=== PATIENT | male | born 1995 | race Caucasian/White ===

== ENCOUNTER 2018-02-14 15:09 | Inpatient (IN) | payer OTHER ==
[~2018-02-14] VITALS: Ht 160 cm; Wt 71.7 kg
[2018-02-14] MEDS ORDERED: MAGNESIUM HYDROXIDE 30 ML LIQUID UDC PO PRN (16:45)
[2018-02-14] MEDS ORDERED: LOPERAMIDE HCL 2 MG CAPSULE PO PRN ×2 (16:45)
[2018-02-14] MEDS ORDERED: THIAMINE HCL 200 MG/2 ML VIAL IM ONE (16:45)
[2018-02-14] MEDS ORDERED: BUPRENORPHINE HCL 2 MG TAB.SUBL SL PRN (16:45)
[2018-02-14] MEDS ORDERED: IBUPROFEN 600 MG TABLET PO PRN (16:45)
[2018-02-14] MEDS ORDERED: MAG HYDROX/AL HYDROX/SIMETH 30 ML LIQUID UDC PO PRN (16:45)
[2018-02-14] MEDS ORDERED: DICYCLOMINE HCL 20 MG TABLET PO PRN (16:45)
[2018-02-14] MEDS ORDERED: LORAZEPAM 2 MG/1 ML VIAL IM PRN (16:45)
[2018-02-14] MEDS ORDERED: MIRALAX 17 GM POWD.PACK PO PRN (16:45)
[2018-02-14] MEDS ORDERED: METHOCARBAMOL 750 MG TABLET PO PRN (16:45)
[2018-02-14] MEDS ORDERED: ONDANSETRON 4 MG/2 ML VIAL IM PRN (16:45)
[2018-02-14] MEDS ORDERED: ONDANSETRON ODT 4 MG TAB.RAPDIS SL PRN (16:45)
[2018-02-14] MEDS ORDERED: CLONIDINE HCL 0.1 MG TABLET PO PRN (16:45)
[2018-02-14] MEDS ORDERED: ACETAMINOPHEN 325 MG TABLET PO PRN (16:45)
[2018-02-14] MEDS ORDERED: LORAZEPAM 1 MG TABLET PO PRN ×2 (16:45)
--- NOTE | 2018-02-14 17:00 | NUR ---
Intake Assessment; Patient is AOX4, a 22 year old male presented to [facility] to detoxify from Heroin and ETOH. Patient appears disheveled, anxious, agitated, tremors to touch, muscle aches complaining of nausea and vomiting. Patient's admitting vital signs are as follows; BP 127/78, HR 98, Respirations 18, Spo2 98%, Temperature 98.0, weight of 158 lbs and height of 5'3. Patient denies history of seizures and no known allergies reported. Educated patient regarding unit protocols and policies, patient verbalized understanding. Will continue with further assessment when patient is up on the unit. Patient was seen and evaluated by MD at intake office.
[2018-02-14] MEDS: BUPRENORPHINE HCL 2 MG TAB.SUBL SL SCH ×2 (18:00→21:51)
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
--- NOTE | 2018-02-14 18:22 | NUR ---
Medication refusal; Patient's COWS score upon admission is 13 and CIWA of 9. Offered patient scheduled Subutex and PRN Zofran to prevent further N/V. Patient refused to take any medications at this time including Thiamine IM, Subutex, or PRN medications. Patient stated " I just want to sleep right now, i will take the medications tonight instead, please i just want to rest at the moment, i will feel better if I rest it out". Educated patient regarding the importance of compliance to medication regime and also the importance of providing urine for urine drug screen. Patient verbalized understanding. Increased fluid intake encouraged. Will closely monitor patient. Charge nurse notified.
--- NOTE | 2018-02-14 18:52 | NUR ---
End of shift note; Patient is a newly admitted client for Opiate/ ETOH withdrawals. Patient is currently asleep, respirations even and unlabored, easily awaken. Instructed patient to notify staff when he is ready to provide urine for UDS, verbalized understanding. All safety measures secured. Met all needs. Endorsed to night nurse.
--- NOTE | 2018-02-14 19:30 | NUR ---
START OF SHIFT NOTE : Pt. is a 22 year old male admitted to [facility] for Heroin and ETOH medically supervised withdrawal. Skip Load Driver encounters pt resting in room with eyes closed. Patient has a flat affect with poor eye contact & poor concentration. Patient is anxious, restless time to time, visible tremor when alert. Patient denies history of seizures and no known allergies reported. No PRN medications received during a day shift. Last CIWA=9, last COWS=13 at 16:00. Encourage pt to increase activity and to attend groups. Safety measures in place : bed on lowest position with side rails x2 up for safety, all light within reach. Will continue to monitor closely and offer help.
[2018-02-14 20:00] VITALS: BP 137/85
--- NOTE | 2018-02-14 21:00 | NUR ---
PRN BENADRYL Pt. complains of difficulty falling asleep, insomnia. PRN BENADRYL given as ordered. Safety measures in place : bed on lowest position with side rails x2 up for safety, call light within reach. Will continue to monitor closely and offer help.
[2018-02-14 21:06] LABS: *BLOOD, URINE NEGATIVE (NEGATIVE); *CLARITY,URINE CLEAR (CLEAR); *COLOR,URINE YELLOW (YELLOW); *KETONES,URINE 1+ (NEGATIVE); *PROTEIN,URINE NEGATIVE (NEGATIVE); LEUKOCYTE ESTERASE ,URINE TRACE (NEGATIVE); NITRITE, URINE NEGATIVE (NEGATIVE); UGLUCOSE NEGATIVE (NEGATIVE)
[2018-02-14 21:22] LABS: *AMPHETAMINE, URINE POSITIVE (NEGATIVE); *BARBITURATE, URINE NEGATIVE (NEGATIVE); *CANNABINOID, URINE POSITIVE (NEGATIVE); *COCCAINE, URINE NEGATIVE (NEGATIVE); *OPIATE, URINE POSITIVE (NEGATIVE); *PHENCYCLIDINE SCREEN,URINE NEGATIVE (NEGATIVE)
[2018-02-14] MEDS: GABAPENTIN 300 MG CAPSULE PO SCH (21:51)
[2018-02-14] MEDS: diphenhydrAMINE 50 MG CAPSULE PO PRN (21:52)
[2018-02-14 21:59] LABS: *BILIRUBIN,URIN 1+ (NEGATIVE)
[2018-02-14 22:00] LABS: MUCUS,URINE FEW /LPF (0-FEW); SQUAMOUS EPITHELIAL CELL,UR FEW /HPF (NONE SEEN)
[2018-02-14] MEDS ORDERED: LORAZEPAM 1 MG TABLET PO SCH (22:00)
--- NOTE | 2018-02-14 22:00 | NUR ---
RE-ASSESSMENT GIA Pt. is sleeping, RR=16, unlabored and even . Safety measures in place : bed on lowest position with side rails x2 up for safety, call light within reach. Will continue to monitor closely and offer help.
[2018-02-15 05:00] VITALS: BP 100/60
--- NOTE | 2018-02-15 05:00 | NUR ---
Pt. refused blood draw. Educated patient regarding the importance of compliance to treatment and medication regime.
--- NOTE | 2018-02-15 06:37 | NUR ---
END OF SHIFT NOTE : Pt. is a 22 year old male admitted to [facility] for Heroin and ETOH medically supervised withdrawal. PRN given during shift leader : BENADRYL. CIWA, COWS taken when pt. was awake, last CIWA=10, COWS=10 at 04:00 . Pt. refused blood draw. Educated patient regarding the importance of compliance to treatment and medication regime, patient verbalized understanding. Intake= 1,296ml, voided x1, slept=7 hours. Safety measures in place : bed on lowest position with side rails x2 up for safety, all light within reach. Will continue to monitor closely and offer help.
--- NOTE | 2018-02-15 07:51 | NUR ---
Start of shift note; Received report from night nurse. Patient is a 22 year old male admitted on 02/14/18 for Opiate/ETOH withdrawals. Patient appears disheveled, withdrawn, complaining of stomach cramps, diaphoresis, anxiety, irritability, avoidant to eye contact. Educated patient regarding the importance of compliance to treatment and medication regime. Re-informed patient regarding the importance of compliance to blood draw, patient verbalized understanding. All safety measures secured. Will continue to monitor patient.
[2018-02-15 08:00] VITALS: BP 99/62
--- NOTE | 2018-02-15 08:30 | NUR ---
Behavioral note; Patient has been non-compliant with blood draw. Educated patient regarding the importance of blood draw, re-informed patient regarding the importance of compliance to treatment plan. Patient finally agreed to do blood draw but became very anxious, patient stated " What the fuck i just want to sleep, you guys kept bothering me. Do not bother me, i don't want to be bothered after this". Blood drawn successfully by relaster. Safety measures secured.
[2018-02-15 08:33] LABS: BASOPHILS % (AUTO) 0.5 % (0.0-2.0); EOSINOPHILS # (AUTO) 0.5 K/uL (0.0-0.7); EOSINOPHILS % (AUTO) 11.9 % (0.0-7.0); HEMATOCRIT 39.3 % (36.7-47.1); HEMOGLOBIN 13.5 g/dL (12.5-16.3); LYMPHOCYTES % (AUTO) 44.7 % (20.5-51.5); MEAN CORPUSCULAR HEMOGLOBIN 28.1 uug (23.8-33.4); MEAN CORPUSCULAR HGB CONC 34 g/dL (32.5-36.3); MEAN CORPUSCULAR VOLUME 81.6 fL (73.0-96.2); MONOCYTES # (AUTO) 0.6 K/uL (2.0-10.0); MONOCYTES % (AUTO) 12.3 % (0.0-11.0); NEUTROPHILS # (AUTO) 1.4 K/uL (1.8-8.9); NEUTROPHILS % (AUTO) 30.6 % (38.5-71.5); PLATELET COUNT (AUTO) 312 K/uL (152-348); RED BLOOD CELL COUNT(AUTO) 4.82 MIL/uL (4.06-5.63); WHITE BLOOD COUNT (AUTO) 4.5 K/uL (3.6-10.2)
[2018-02-15 08:38] LABS: ETHANOL < 3 MG/DL (0-0)
[2018-02-15 08:43] LABS: ALANINE AMINOTRANSFERASE 23 U/L (16-63); ALKALINE PHOSPHATASE 82 U/L (50-136); AMYLASE 57 U/L (25-115); ASPARTATE AMINOTRANSFERASE 15 U/L (15-37); BILIRUBIN,TOTAL 0.3 mg/dL (0.2-1.0); CARBON DIOXIDE 30 mmol/L (21-32); CHLORIDE 103 mmol/L (98-107); CREATININE 0.9 mg/dL (0.6-1.3); GLUCOSE 99 mg/dL (74-106); MAGNESIUM 2.2 mg/dL (1.8-2.4); POTASSIUM 3.7 mmol/L (3.5-5.1); TOTAL PROTEIN, SERUM 6.8 g/dL (6.4-8.2); UREA NITROGEN, BLOOD 11 mg/dL (7-18)
[2018-02-15] MEDS: MULTIVITAMINS,THERAPEUTIC TABLET PO SCH (09:00)
[2018-02-15] MEDS ORDERED: TUBERCULIN,PURIF.PROT.DERIV. 5 TU/0.1 ML TEST ID ONE (09:00)
[2018-02-15] MEDS: LORAZEPAM 1 MG TABLET PO SCH ×3 (09:00→21:26)
[2018-02-15] MEDS: FOLIC ACID 1 MG TABLET PO SCH (09:00)
[2018-02-15] MEDS: BUPRENORPHINE HCL 2 MG TAB.SUBL SL SCH ×3 (09:00→21:27)
[2018-02-15] MEDS: GABAPENTIN 300 MG CAPSULE PO SCH ×3 (09:00→21:26)
[2018-02-15] MEDS: THIAMINE HCL 100 MG TABLET PO SCH (09:00)
--- NOTE | 2018-02-15 09:56 | NUR ---
Medication Refusal; Patient refused to take morning medications. Patient stated " I will take my medications later, for now leave me alone , i just want to sleep". MD made aware of patient's refusal to medications. Lab results also relayed to MD. PRN medications are available. Will closely monitor patient.
--- NOTE | 2018-02-15 10:31 | NUR ---
PRN medications; Patient is AOX4 complaining of muscle aches, diaphoresis, stomach cramps, eyes tearing, muscle aches, anxiety, agitation, mild headache. Patient's current COWS score is 14 and CIWA of 15. PRN Ativan 2mg PO given for CIWA of 15 and Subutex 4mg SL given for COWS score of 14. Will closely monitor patient. Instructed patient to notify staff when he needs to urinate, urine culture specimen needed per MD, patient verbalized understanding.
--- NOTE | 2018-02-15 11:30 | NUR ---
Re-assessment; Patient is AOX4. Patient's current COWS score is 10 and CIWA score of 10. PRN Ativan and PRN Subutex noted to be effective.
[2018-02-15 12:00] VITALS: BP 130/69
--- NOTE | 2018-02-15 15:20 | NUR ---
Therapist encouraged client to attend one therapy group daily, at a different time than his girlfriend. Client agreed.
[2018-02-15 16:00] VITALS: BP 112/68
--- NOTE | 2018-02-15 16:03 | NUR ---
PRN medications; Patient is complaining of nausea and sweats and BP of 148/92. PRN Zofran 4mg ODT given for nausea and Clonidine for agitation and elevated BP. Will continue to monitor patient
--- NOTE | 2018-02-15 17:03 | NUR ---
Re-assessment; Patient denies nausea and BP of 112/68 noted. PRN Zofran and PRN Clonidine noted to be effective.
--- NOTE | 2018-02-15 18:21 | NUR ---
End of shift note; Patient is AOX4, appears anxious, agitated complaining of muscle aches, diaphoresis, appears disheveled. Patient was placed on Ativan and Subutex tapers. Medications were effective in reducing withdrawal symptoms. Patient's last COWS score is 11 and last CIWA score is 12at 1600. All safety measures secured. Met all needs.
--- NOTE | 2018-02-15 19:30 | NUR ---
START OF SHIFT NOTE : Pt. is a 22 year old male admitted to [facility] for Heroin and ETOH medically supervised withdrawal. Steam Press Operator encounters pt resting in room with eyes closed. Patient has a flat affect with poor eye contact & poor concentration. Patient is anxious, restless time to time, visible tremor when alert. No PRN medications received during a day shift. Last CIWA=9, last COWS=13 at 16:00. Encourage pt to increase activity and to attend groups. Safety measures in place : bed on lowest position with side rails x2 up for safety, all light within reach. Will continue to monitor closely and offer help.
[2018-02-15 20:00] VITALS: BP 124/75
[2018-02-15] MEDS: diphenhydrAMINE 50 MG CAPSULE PO PRN (21:26)
[2018-02-16 04:00] VITALS: BP 120/60
--- NOTE | 2018-02-16 06:45 | NUR ---
END OF SHIFT NOTE : Pt. is a 22 year old male admitted to [facility] for Heroin and ETOH medically supervised withdrawal. . PRN given during graining machine operator : BENADRYL. CIWA, COWS taken when pt. was awake, last CIWA=10, COWS=10 at 04:00 . Pt. went to smoke late in the evening , then fell asleep. Intake= 1,125ml, voided x2, slept=7 hours. Safety measures in place : bed on lowest position with side rails x2 up for safety, all light within reach. Will continue to monitor closely and offer help.
[2018-02-16 08:00] VITALS: BP 118/64
--- NOTE | 2018-02-16 08:00 | NUR ---
received patient asleep and arousable to verbal and tactile stimulation no behavior issues noted medication compliant continue to monitor parient for s/s of agitation
[2018-02-16] MEDS ORDERED: HYDROXYZINE PAMOATE 25 MG CAPSULE PO PRN (09:00)
[2018-02-16] MEDS ORDERED: LORAZEPAM 1 MG TABLET PO SCH ×3 (09:00→21:00)
[2018-02-16] MEDS ORDERED: BUPRENORPHINE HCL 2 MG TAB.SUBL SL SCH (09:00)
[2018-02-16] MEDS: FOLIC ACID 1 MG TABLET PO SCH (10:31)
[2018-02-16] MEDS: MULTIVITAMINS,THERAPEUTIC TABLET PO SCH (10:31)
[2018-02-16] MEDS: THIAMINE HCL 100 MG TABLET PO SCH (10:31)
[2018-02-16] MEDS: GABAPENTIN 300 MG CAPSULE PO SCH ×3 (10:32→21:08)
[2018-02-16 11:11] LABS: HEPATITIS B SURFACE AG Negative (Negative)
[2018-02-16 12:00] VITALS: BP 129/76
[2018-02-16] MEDS ORDERED: KETOROLAC TROMETHAMINE 30 MG INJ IM PRN (14:00)
[2018-02-16] MEDS: BUPRENORPHINE HCL 2 MG TAB.SUBL SL SCH ×2 (15:01→21:16)
[2018-02-16 16:00] VITALS: BP 107/60
--- NOTE | 2018-02-16 18:51 | NUR ---
end of shift patient has been sleeping most of shift drowsy , yet arousable .Patient has been on room restrictions for touching girlfriend until 17 30pm no behavior other than that .no prns today
[2018-02-16 20:00] VITALS: BP 135/81
--- NOTE | 2018-02-16 20:00 | NUR ---
Start of Shift Pt is a 22 year old male admitted for ETOH/Opiate withdrawal, is placed on a 4 day Ativan and 4 day Subutex taper. Upon assessment, pt reports feeling anxious, is noted to be irritable when assessment is being performed, is restless, flushed, reports feeling fatigue, body aches, clammy skin. Medication due, safety measures in place, will continue to monitor.
[2018-02-16] MEDS: LACTOBACILLUS RHAMNOSUS GG 1 EACH CAPSULE PO SCH (21:08)
[2018-02-16] MEDS: CLONIDINE HCL 0.1 MG TABLET PO SCH (21:09)
[2018-02-16] MEDS: AMOXICILLIN-CLAVUL 875-125MG TABLET PO SCH (21:09)
[2018-02-17] VITALS (7 sets, daily range): BP systolic 99–147; BP diastolic 56–76
--- NOTE | 2018-02-17 04:00 | NUR ---
CIWA/COWS deferred d/t pt sleeping - to assess while pt is awake as ordered. BP 120/68, pulse 62, resp 20, SpO2 98% RA, temp 98.[address], will continue to monitor.
--- NOTE | 2018-02-17 07:00 | NUR ---
End of Shift Pt is a 22 year old male admitted for ETOH/Opiate withdrawal, is placed on a 4 day Ativan and 4 day Subutex taper. During shift, pt reported feeling anxious, noted to be irritable when assessment is being performed, restless, flushed, reports feeling fatigue, body aches, clammy skin scheduled taper medications administered, COWS 12 decreased to COWS 8 and CIWA 13 decreased to CIWA 10. No PRN medications administered during shift. Pt is on Amoxicillin for UTI. Pt slept for 6 hours, intake of 850ml PO, voids x2 and stool x0. safety measures in place, endorsed to day shift nurse.
--- NOTE | 2018-02-17 07:35 | NUR ---
START OF SHIFT Pt is a 22 yr old male, admitted on 02/14/18 for ETOH/Opiate Withdrawal and is on 4 day Subutex and Ativan taper as ordered. Received report from electrical maintenance supervisor nurse. No PRN's were given during the day. Last CIWA score was 8 and COWS score was 8 at 0000. Pt slept for 6 hrs. Pt is on Amoxicillin for UTI. No adverse reaction noted. Skin is intact, warm and moist to touch. Pt is currently in bed resting with respirations even and unlabored. Pt is on fall and seizure precautions. Call light is within reach. Will continue to monitor.
--- NOTE | 2018-02-17 08:00 | NUR ---
CIWA AND COWS SCORE WAS DEFERRED COWS and CIWA score was deferred. Pt is currently in bed sleeping with respirations even and unlabored. RR is 16. Safety precautions observed. Will continue to monitor.
--- NOTE | 2018-02-17 09:30 | NUR ---
NSG NOTES Pt is noted with anxiety and agitation. Pt is avoidant during assessment and noted with flat affect. Pt is c/o runny nose, cold chills, and nausea. COWS score was 11 and CIWA 9 at this time. Subutex 2mg PO and Ativan 1mg PO as scheduled at 0900 was administered at this time. Encouraged increase fluid intake. Will continue to monitor.
[2018-02-17] MEDS: LACTOBACILLUS RHAMNOSUS GG 1 EACH CAPSULE PO SCH ×2 (09:39→20:50)
[2018-02-17] MEDS: FOLIC ACID 1 MG TABLET PO SCH (09:39)
[2018-02-17] MEDS: GABAPENTIN 300 MG CAPSULE PO SCH ×3 (09:39→20:50)
[2018-02-17] MEDS: BUPRENORPHINE HCL 2 MG TAB.SUBL SL SCH ×3 (09:39→20:50)
[2018-02-17] MEDS: LORAZEPAM 1 MG TABLET PO SCH ×2 (09:39→20:49)
[2018-02-17] MEDS: CLONIDINE HCL 0.1 MG TABLET PO SCH ×2 (09:39→20:49)
[2018-02-17] MEDS: THIAMINE HCL 100 MG TABLET PO SCH (09:39)
[2018-02-17] MEDS: MULTIVITAMINS,THERAPEUTIC TABLET PO SCH (09:39)
[2018-02-17] MEDS: AMOXICILLIN-CLAVUL 875-125MG TABLET PO SCH ×2 (09:40→20:50)
--- NOTE | 2018-02-17 19:10 | NUR ---
END OF SHIFT Pt is a 22 yr old male, AA&Ox4. Pt was admitted on 02/14/18 for ETOH/Opiate Withdrawal and is on 4 day Subutex and Ativan taper as ordered. Pt refused to attend group therapy. Pt was cooperative with medication regimen. Pt has been noted with increase anxiety and agitation throughout the day. Pt is noted with flat affect and blunt during assessment. Skin is intact, warm and moist to touch. Pt remains on Amoxicillin for UTI. No adverse reaction noted. Pt was encouraged increase fluid intake. No PRNs were given during the day. Last COWS score was 8 and CIWA score was 8 at 1600. Pt is on fall and seizure precautions. Call light is within reach.
--- NOTE | 2018-02-17 19:12 | NUR ---
Start of shift note Received report from day shift nurse. Pt is a 22 yo male, A+Ox4, presenting to [facility] for ETOH/Opiate/Meth withdrawal. Pt noted with anxiety, agitation, restlessness, and messy room. Pt has HX of insomnia which will be monitored during shift. Pt is on 4 day Subutex and 4 day Ativan tapers, tolerated well. Respirations even and unlabored. Will continue to monitor.
[2018-02-17] MEDS: TERBINAFINE CREAM 24 GM TUBE TP SCH (20:50)
[2018-02-17] MEDS: diphenhydrAMINE 50 MG CAPSULE PO PRN (22:26)
--- NOTE | 2018-02-17 22:26 | NUR ---
PRN Benadryl Pt c/o inability to sleep and requested for PRN Benadryl. Medication given and tolerated well. Will reassess within 1 HR. Will continue to monitor.
--- NOTE | 2018-02-17 23:20 | NUR ---
PRN Benadryl Reassessment Medication effective. Patient is resting well in bed. No s/s of ASE noted at this time. Respirations even and unlabored. Will continue to monitor.
[2018-02-18 00:11] VITALS: BP 128/76
[2018-02-18 04:41] VITALS: BP 117/71
--- NOTE | 2018-02-18 07:00 | NUR ---
End of shift note Pt was continuously noted to be anxious, agitated, restless, and having messy room. Pt remains on room restriction for behavior. Pt remained in room for majority of shift except to go smoke on smoking patio and to get food from kitchen. Pt was given PRN Kajalryl @2226. Pt slept for a total of 8 HRS. Last COWS: 8 and Last CIWA: 8 @0400. Respirations even and unlabored. Will endorse to day shift nurse.
--- NOTE | 2018-02-18 07:30 | NUR ---
START OF SHIFT Pt is a 22 yr old male, admitted on 02/14/18 for ETOH/Opiate Withdrawal and is on 4 day Subutex and Ativan taper as ordered. Received report from behavioral therapist nurse. Pt received Benadryl PO PRN for sleep. Medication was effective. Pt slept fro 8 hrs. Last CIWA score was 8 and COWS score was 8 at 0400. Pt is currently in bed sleeping with respirations even and unlabored. Skin is intact, warm and moist to touch. Pt is on fall and seizure precautions. Bed kept in low positions and locked with side rail up x2. Call light is within reach. Will continue to monitor.
[2018-02-18 08:00] VITALS: BP 97/48
[2018-02-18 08:06] LABS: *GC NAA Negative (Negative); *TRIC.VAG. NAA Negative (Negative)
[2018-02-18] MEDS: CLONIDINE HCL 0.1 MG TABLET PO SCH ×2 (09:00→22:29)
[2018-02-18] MEDS ORDERED: BUPRENORPHINE HCL 2 MG TAB.SUBL SL SCH (09:00)
[2018-02-18] MEDS ORDERED: LORAZEPAM 1 MG TABLET PO SCH (09:00)
[2018-02-18] MEDS: AMOXICILLIN-CLAVUL 875-125MG TABLET PO SCH ×2 (09:12→22:29)
[2018-02-18] MEDS: MULTIVITAMINS,THERAPEUTIC TABLET PO SCH (09:12)
[2018-02-18] MEDS: LACTOBACILLUS RHAMNOSUS GG 1 EACH CAPSULE PO SCH ×2 (09:12→22:30)
[2018-02-18] MEDS: FOLIC ACID 1 MG TABLET PO SCH (09:12)
[2018-02-18] MEDS: GABAPENTIN 300 MG CAPSULE PO SCH ×3 (09:12→22:30)
[2018-02-18] MEDS: THIAMINE HCL 100 MG TABLET PO SCH (09:13)
[2018-02-18] MEDS: TERBINAFINE CREAM 24 GM TUBE TP SCH ×2 (09:13→21:00)
[2018-02-18 12:00] VITALS: BP 102/59
[2018-02-18] MEDS ORDERED: CLON0.1T14 PO (15:20)
[2018-02-18] MEDS ORDERED: GABA-534 PO ×2 (15:20)
[2018-02-18] MEDS ORDERED: DIPH50CA37 PO (15:20)
[2018-02-18] MEDS ORDERED: Amoxicillin-Clavul 875MG Tab PO (15:20)
[2018-02-18] MEDS ORDERED: METH-406 PO (15:20)
[2018-02-18] MEDS ORDERED: IBUP-1955 PO (15:20)
[2018-02-18] MEDS ORDERED: HYDR-3895 PO (15:20)
[2018-02-18] MEDS ORDERED: TERBINAFINE TP (15:20)
[2018-02-18] MEDS ORDERED: DICY20TA28 PO (15:20)
[2018-02-18 16:00] VITALS: BP 126/67
--- NOTE | 2018-02-18 18:57 | NUR ---
END OF SHIFT Pt is a 22 yr old male, AA&Ox4. Pt was admitted on 02/14/18 for ETOH/Opiate Withdrawal and has completed a 4 day Subutex and Ativan taper as ordered. Pt has been observed with increase drowsiness and remained in bed throughout the day. Pt c/o feeling anxious and agitation but is able to cope with anxiety level. Pt is noted with flat affect. Skin is intact, warm and moist to touch. Pt remains on Amoxicillin for UTI. No adverse reaction noted. Pt was encouraged increase fluid intake. No PRNs were given during the day. Last COWS score was 7 and CIWA score was 6 at 1600. Pt is to be discharged tomorrow on 02/19/18. Pt is on fall and seizure precautions. Call light is within reach.
--- NOTE | 2018-02-18 19:12 | NUR ---
Start of shift note Received report from day shift nurse. Pt is a 22 yo male, A+Ox4, presenting to [facility] for ETOH/Opiate/Meth withdrawal. Pt noted to be agitated, anxious, restless, and having messy room with clothes on floor and food on dresser and side table. Pt has HX of insomnia which will be monitored during shift. Pt has completed 4 day Ativan and 4 day Subutex tapers, tolerated well, and is due for discharge tomorrow. Pt is on room restriction for behavior. Respirations even and unlabored. Will continue to monitor.
[2018-02-18 20:16] VITALS: BP 125/71
[2018-02-18] MEDS: diphenhydrAMINE 50 MG CAPSULE PO PRN (22:29)
--- NOTE | 2018-02-18 22:29 | NUR ---
PRN Benadryl Pt c/o inability to sleep and requested for PRN Benadryl. Medication given and tolerated well. Will reassess within 1 HR. Will continue to monitor.
[2018-02-19 00:17] VITALS: BP 122/71
[2018-02-19 04:31] VITALS: BP 128/79
--- NOTE | 2018-02-19 07:00 | NUR ---
End of shift note Pt was continuously noted to be anxious, agitated, and restless. Pt remained in room on room restriction except to go smoke on smoking patio, and to attend group therapy. Pt has completed 4 day Subutex and 4 day Ativan taper, tolerated well, and is due for discharge today. Pt was given PRN Luis Alfredol @2300. Pt slept for a total of 9 HRS. Last COWS: 5 and Last CIWA: 5 @0400. Respirations even and unlabored. Will endorse to day shift nurse.
--- NOTE | 2018-02-19 07:30 | NUR ---
START OF SHIFT Pt is a 22 yr old male, admitted on 02/14/18 for ETOH/Opiate Withdrawal and has completed a 4 day Subutex and Ativan taper as ordered. Received report from warehouse shift supervisor nurse. Pt received Benadryl PO PRN for sleep. Medication was effective. Pt slept fro 9 hrs. Last CIWA score was 5 and COWS score was 5 at 0400. Pt is currently in bed sleeping with respirations even and unlabored. Skin is intact, warm and moist to touch. Pt is on fall and seizure precautions. Bed kept in low positions and locked with side rail up x2. Call light is within reach. Will continue to monitor.
[2018-02-19 08:06] VITALS: BP 107/61
[2018-02-19] MEDS: GABAPENTIN 300 MG CAPSULE PO SCH (08:13)
[2018-02-19] MEDS: AMOXICILLIN-CLAVUL 875-125MG TABLET PO SCH (08:13)
[2018-02-19] MEDS: LACTOBACILLUS RHAMNOSUS GG 1 EACH CAPSULE PO SCH (08:13)
[2018-02-19 08:14] VITALS: BP 107/61
[2018-02-19] MEDS: CLONIDINE HCL 0.1 MG TABLET PO SCH (08:14)
[2018-02-19] MEDS: MULTIVITAMINS,THERAPEUTIC TABLET PO SCH (08:14)
[2018-02-19] MEDS: FOLIC ACID 1 MG TABLET PO SCH (08:14)
[2018-02-19] MEDS: THIAMINE HCL 100 MG TABLET PO SCH (08:14)
[2018-02-19] MEDS: TERBINAFINE CREAM 24 GM TUBE TP SCH (08:16)
--- NOTE | 2018-02-19 10:01 | NUR ---
DISCHARGE NOTE Pt is a 22 yr old male, admitted on 02/14/18 for ETOH/Opiate Withdrawal and has completed a 4 day Subutex and Ativan taper as ordered. Pt was cooperative with medication regimen and plan of care. Pt was noted with anxiety but was able to cope with anxiety level. No HI/SI was noted. Last COWS score was 4, CIWA score was 5 at 0800. Pt was educated on discharged summary and prescriptions. Pt was able to verbalize understanding. Pt was off the unit at 0945 in stable condition. Pt left the unit with all belongings and valuables. No home medication was brought.
== END 2018-02-19 09:45 | disposition home or self-care (01) | DRG 895 ==
LOC: SRC 16:06
PROVIDERS: ADMIT Internal Medicine; ATTEND Internal Medicine
PROC: HZ2ZZZZ Detoxification Services for Substance Abuse Treatment (ICD-10-PCS; principal; 2018-02-14)
PROC: HZ31ZZZ Individual Counseling for Substance Abuse Treatment, Behavioral (ICD-10-PCS; 2018-02-17)
DX: F10.230 Alcohol dependence with withdrawal, uncomplicated (principal); N30.00 Acute cystitis without hematuria; I15.9 Secondary hypertension, unspecified; F11.23 Opioid dependence with withdrawal; F15.23 Other stimulant dependence with withdrawal; F12.20 Cannabis dependence, uncomplicated; B35.6 Tinea cruris; Y90.9 Presence of alcohol in blood, level not specified; Z91.89 Other specified personal risk factors, not elsewhere classified; F17.210 Nicotine dependence, cigarettes, uncomplicated; Z72.51 High risk heterosexual behavior; G47.00 Insomnia, unspecified; Z59.1 Inadequate housing
CPT/HCPCS: 36415; 80307; 80324; 80349; 80361; 83735; 85025; 86592; 86705; 86803; 87077; 87086; 87340; 87491; 87806; G0480; Q0162; Q0163